=== PATIENT | female | born 1955 | race Caucasian/White ===

== ENCOUNTER 2017-11-03 10:06 | Day surgery (SDC) | payer BC, OTHER ==
[~2017-11-03] VITALS: Ht 154.9 cm; Wt 61.1 kg
[2017-11-03 10:43] VITALS: Ht 154.9 cm; Wt 61.1 kg
[2017-11-03] MEDS ORDERED: LEVO50TA74 PO (10:50)
[2017-11-03 11:04] VITALS: BP 136/64; PULSE 62; RESP 14
--- NOTE | 2017-11-03 11:40 | OPPN ---
Date/Time of Note Date/Time of Note DATE: 11/03/17 TIME: 11:39 Operative Report Preoperative Diagnosis Rectal bleeding Postoperative Diagnosis Flat polyp in the rectum and multiple biopsies were taken for histopathology Internal hemorrhoids Operation/Procedure Performed Colonoscopy and biopsy Surgeon see signature line mortgage assistant None Anesthesia: moderate sedation Estimated blood loss: none Transfusion Required none Specimen Rectal polyp biopsy Grafts/Implants none Complications none JEFFREY RODAS MD Nov 03, 2017 11:40
[2017-11-03] MEDS ORDERED: MIDAZOLAM 1 MG/ML 2 ML INJ ONE (11:42)
[2017-11-03] MEDS ORDERED: FENTAnyl 50 MCG/ML VIAL ONE (11:42)
[2017-11-03 12:02] VITALS: BP 108/58; RESP 17
--- NOTE | 2017-11-03 23:41 | GILP ---
DATE OF PROCEDURE: NAME OF PROCEDURE: Colonoscopy and biopsy. SURGEON: Jeffrey Russell MD PREOPERATIVE DIAGNOSIS: Rectal bleeding. POSTOPERATIVE DIAGNOSES: 1. Colonoscopy all the way to the cecum. 2. Flat polyp in the rectum and multiple biopsies were taken for histopathology. 3. Internal hemorrhoids. 4. Diverticulosis of the colon. INDICATION FOR THE PROCEDURE: Ms. Sapphire Herrera is a 62-year-old female patient who was complain ing of rectal bleeding. The patient was scheduled for colonoscopy for further evaluation. The procedure and possible complications were well explained to the patient, the patient understood and consented to the procedure. DESCRIPTION OF PROCEDURE: Under the influence of fentanyl and Versed, the colonoscope was carefully introduced in the rectum and under direct vision, it was advanced all the way to the cecum. FINDINGS: The patient had a large flat polyp in the rectum and multiple biopsies were taken for his topathology. The patient was noted to have internal hemorrhoids. The patient was also noted to have diverticulosis of the colon. The patient tolerated the procedure very well and there was no complication from the procedure. At the end of the procedure, she was a wake with stable vital signs and she was discharged home to the care of her family. IMPRESSION: 1. Colonoscopy all the way to the cecum. 2. Large flat polyp in the rectum and multiple biopsies were taken for histopathology. 3. Diverticulosis of the colon. 4. Internal hemorrhoids. PLAN: 1. Await histopathology report. 2. Anusol-HC 2.5% cream b.i.d. 3. Patient may need polypectomy if the biopsy shows adenomatous polyp. Dictated By: JEFFREY KWON/JASVIR Conf#: [id number] DID#: [id number]
== END 2017-11-03 13:55 | disposition home or self-care (01) ==
LOC: GIL 10:06
PROVIDERS: ATTEND Internal Medicine Gastroenterology
DX: K62.1 Rectal polyp (principal); K57.90 Diverticulosis of intestine, part unspecified, without perforation or abscess without bleeding; K64.8 Other hemorrhoids
CPT/HCPCS: 45380; 88305; J2250; J3010